=== PATIENT | female | born 1945 | race Caucasian/White ===

== ENCOUNTER → 2020-10-31 | Outpatient (CLI) | payer MEDICARE, BC | LOC: OPSV 10-28 13:00 | DX: Z45.2 Encounter for adjustment and management of vascular access device (principal); C54.1 Malignant neoplasm of endometrium | CPT/HCPCS: 96523 ==

== ENCOUNTER 2021-02-19 20:41 | Emergency (ER) | payer MEDICARE, BC | END 2021-02-19 23:02 | disposition home or self-care (01) | LOC: ER1 20:41 | DX: S40.211A Abrasion of right shoulder, initial encounter (principal); S50.812A Abrasion of left forearm, initial encounter; S50.811A Abrasion of right forearm, initial encounter; Z79.01 Long term (current) use of anticoagulants; Z88.2 Allergy status to sulfonamides; W10.9XXA Fall (on) (from) unspecified stairs and steps, initial encounter | CPT/HCPCS: 70450; 72125; 73030; 73090; 73110; 73564; 93005; 99284 ==

== ENCOUNTER → 2021-02-27 | Outpatient (CLI) | payer MEDICARE, BC ==
[~2021-02-27] MED LIST: CLARITIN10 MG PO; ELIQUIS5 MG PO; FLECAINIDE ACET50 MG PO; HUMALOG100 UNIT/1 SC; HYDROCODON-ACE1 EAC4 PO; HYDROCODON-ACE1 EAC6 PO; LANTUS INS100 UTS/M1 SQ; LASIX20 MG PO; LEVOFLOXACIN500 MG PO; LEVOTHYROXINE150 MC1 PO; OMEPRAZOLE20 MG PO; POTASSIUM CHLO20 ME1 PO; SIMVASTATIN10 MG PO; VITAMIN D 40400 UNIT PO
== END ==
LOC: HEART CORB 02-22 10:30
DX: R07.2 Precordial pain (principal); R06.02 Shortness of breath; R60.0 Localized edema; R00.2 Palpitations; I08.1 Rheumatic disorders of both mitral and tricuspid valves; I10 Essential (primary) hypertension; E11.9 Type 2 diabetes mellitus without complications; E78.5 Hyperlipidemia, unspecified; E03.9 Hypothyroidism, unspecified; E55.9 Vitamin D deficiency, unspecified; F41.9 Anxiety disorder, unspecified; F32.9 Major depressive disorder, single episode, unspecified; K57.92 Diverticulitis of intestine, part unspecified, without perforation or abscess without bleeding; K21.9 Gastro-esophageal reflux disease without esophagitis; M76.62 Achilles tendinitis, left leg; Z86.711 Personal history of pulmonary embolism; Z79.01 Long term (current) use of anticoagulants
CPT/HCPCS: 78452; 93306; A9502; J2785

== ENCOUNTER 2021-05-27 13:32 | Inpatient (IN) | payer MEDICARE, BC ==
[~2021-05-27] VITALS: Ht 160 cm; Wt 128.4 kg
[2021-05-27 14:18] LABS: HEMOGLOBIN 16.1 gm/dl (12.3-15.3); RED BLOOD COUNT 5.73 M/UL (4.00-5.10); WHITE BLOOD COUNT 15.7 K/UL (4.5-11.0)
[2021-05-28] MEDS ORDERED: LASIX20 MG PO (01:14)
[2021-05-28] MEDS ORDERED: POTASSIUM CHLO20 ME1 PO (01:15)
[2021-05-28] MEDS ORDERED: FLECAINIDE ACET50 MG PO (01:16)
[2021-05-28] MEDS ORDERED: ELIQUIS5 MG PO (01:16)
[2021-05-28] MEDS ORDERED: LEVOTHYROXINE150 MC1 PO (01:17)
[2021-05-28] MEDS ORDERED: CLARITIN10 MG PO (01:18)
[2021-05-28] MEDS ORDERED: OMEPRAZOLE20 MG PO (01:20)
[2021-05-28] MEDS ORDERED: VITAMIN D 40400 UNIT PO (01:21)
[2021-05-28] MEDS ORDERED: SIMVASTATIN10 MG PO (01:21)
[2021-05-28] MEDS ORDERED: LANTUS INS100 UTS/M1 SQ (01:23)
[2021-05-28] MEDS ORDERED: HUMALOG100 UNIT/1 SC (01:24)
[2021-05-28] MEDS ORDERED: HYDROCODON-ACE1 EAC4 PO (01:26)
[2021-05-28] MEDS ORDERED: HYDROCODON-ACE1 EAC6 PO (01:26)
[2021-05-28 02:45] LABS: HEMOGLOBIN 11.5 gm/dl (12.3-15.3); RED BLOOD COUNT 4.16 M/UL (4.00-5.10); WHITE BLOOD COUNT 25.8 K/UL (4.5-11.0)
[2021-05-28 05:02] LABS: HEMOGLOBIN 11.5 gm/dl (12.3-15.3)
[2021-05-28 12:59] LABS: HEMOGLOBIN 11.9 gm/dl (12.3-15.3)
[2021-05-28 21:01] LABS: HEMOGLOBIN 10.9 gm/dl (12.3-15.3)
[2021-05-29 06:37] LABS: HEMOGLOBIN 11.3 gm/dl (12.3-15.3)
[2021-05-29 07:09] LABS: BUN/CREATININE RATIO 13 (0-10)
[2021-05-29 12:53] LABS: HEMOGLOBIN 10.5 gm/dl (12.3-15.3)
[2021-05-30 06:23] LABS: HEMOGLOBIN 9.5 gm/dl (12.3-15.3)
[2021-05-30 06:24] LABS: RED BLOOD COUNT 3.52 M/UL (4.00-5.10); WHITE BLOOD COUNT 9.4 K/UL (4.5-11.0)
[2021-05-30 06:43] LABS: BUN/CREATININE RATIO 14 (0-10)
--- NOTE | 2021-05-30 14:32 | NUR ---
pt stated she did not want to have IV fluids, and did not see a reason for her to have a heart monitor on. called and made aware. 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
--- NOTE | 2021-05-31 01:02 | NUR ---
[id number] PT REFUSES TO WEAR [employer]TI[employer].
--- NOTE | 2021-05-31 04:02 | NUR ---
IN PT ROOM AND SHE REQUESTS TO HAVE THE FLUIDS D/C AT THIS TIME.
[2021-05-31 04:09] LABS: HEMOGLOBIN 9.5 gm/dl (12.3-15.3); RED BLOOD COUNT 3.45 M/UL (4.00-5.10); WHITE BLOOD COUNT 8.5 K/UL (4.5-11.0)
[2021-05-31] MEDS ORDERED: LEVOFLOXACIN500 MG PO ×2 (10:49→14:23)
== END 2021-05-31 16:03 | disposition home health service (06) | DRG 386 ==
LOC: ER1 13:32 → CDU 22:11 → MED SURG 4 22:54 → CDU 22:54 → MED SURG 4 05-28 00:44
PROVIDERS: Family Medicine; Internal Medicine; ADMIT Internal Medicine
DX: K51.50 Left sided colitis without complications (principal); F11.20 Opioid dependence, uncomplicated; D62 Acute posthemorrhagic anemia; Z68.43 Body mass index [BMI] 50.0-59.9, adult; R65.10 Systemic inflammatory response syndrome (SIRS) of non-infectious origin without acute organ dysfunction; I95.1 Orthostatic hypotension; E66.01 Morbid (severe) obesity due to excess calories; G47.33 Obstructive sleep apnea (adult) (pediatric); Z20.822 Contact with and (suspected) exposure to COVID-19; I48.0 Paroxysmal atrial fibrillation; M19.90 Unspecified osteoarthritis, unspecified site; E11.9 Type 2 diabetes mellitus without complications; Z85.42 Personal history of malignant neoplasm of other parts of uterus; Z85.038 Personal history of other malignant neoplasm of large intestine; Z79.4 Long term (current) use of insulin; Z90.49 Acquired absence of other specified parts of digestive tract; Z90.710 Acquired absence of both cervix and uterus; Z98.890 Other specified postprocedural states; Z88.2 Allergy status to sulfonamides; Z88.8 Allergy status to other drugs, medicaments and biological substances; Z87.2 Personal history of diseases of the skin and subcutaneous tissue; Z86.711 Personal history of pulmonary embolism; Z80.0 Family history of malignant neoplasm of digestive organs
CPT/HCPCS: 36600; 71045; 71260; 80048; 80053; 81001; 82550; 82553; 82803; 82962; 83605; 83735; 83874; 84100; 84484; 85014; 85018; 85025; 87040; 87086; 93005; 94660; 94760; 96374; 96375; 97161; 99285; C9113; G0378; J1335; J2060; J2270; J2405; J7030; Q9967; U0002